=== PATIENT | male | born 1960 | race Caucasian/White ===

== ENCOUNTER 2016-08-03 18:15 | Emergency (ER) | payer SELFPAY | END 2016-08-03 19:05 | disposition home or self-care (01) | LOC: ER 18:15 | DX: S46.912A Strain of unspecified muscle, fascia and tendon at shoulder and upper arm level, left arm, initial encounter (principal); X58.XXXA Exposure to other specified factors, initial encounter; F17.200 Nicotine dependence, unspecified, uncomplicated | CPT/HCPCS: 73030-LT; 93005; 99283; J1885 ==